=== PATIENT | male | born 1940 | race Caucasian/White ===

== ENCOUNTER 2018-10-10 09:43 | Emergency (ER) | payer MEDICARE, MEDICAID, SELFPAY ==
[2018-10-10 09:44] VITALS: BP 172/81; PULSE 60; RESP 19; TEMP 36.6; O2SAT 99; BMI 29.5
--- NOTE | 2018-10-10 09:44 | NURSING ---
NO OLD EKGS
--- NOTE | 2018-10-10 09:46 | EKG12_ITS ---
Test Reason : CP Blood Pressure : / mmHG Vent. Rate : 060 BPM Atrial Rate : 150 BPM P-R Int : 000 ms QRS Dur : 078 ms QT Int : 414 ms P-R-T Axes : 000 -14 005 degrees QTc Int : 414 ms Normal sinus rhythm Abnormal ECG Confirmed by EVY MARTÍNEZ MD ([id number]), editor department CARLA RENDON ([id number] on 10/13/2018 3:25:52 PM Referred By: GARETH Confirmed By:EVY MARTÍNEZ MD
[2018-10-10 09:48] VITALS: PULSE 59
--- NOTE | 2018-10-10 09:57 | RAD_ITS ---
STUDY: X-RAY CHEST REASON FOR EXAM: Male, 78 years old. Left lateral rib cage pain, no trauma. TECHNIQUE: PA and lateral views of the chest. COMPARISON: None. FINDINGS: There is hyperinflation of the lungs consistent with chronic obstructive lung disease (COPD). There is no demonstrated pleural abnormality. Normal size heart. Normal mediastinum and jhon. Normal visualized pulmonary arteries. There is atherosclerotic calcification of the aortic arch with tortuosity. There are diffuse degenerative changes of the visualized thoracic spine. Normal visualized ribs, clavicles, and shoulders. There is no demonstrated abnormality of the visualized soft tissue structures of the upper abdomen. RAD/Chest PA and Lateral IMPRESSION: COPD related changes with no evidence of distinct focal airspace disease or acute process. Electronically Signed: Loki Richard DO at 10:51 EST , Service support ,
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
[2018-10-10 10:42] VITALS: BP 143/73; PULSE 59; RESP 13; O2SAT 98
--- NOTE | 2018-10-10 10:43 | ED.DEP ---
ED Disposition - Plan for ED Patient: Disposition: Home or Assisted Living Chief Complaint: Chest Pain Instructions: ED Contusion Vs Minor Fx Rib Referrals: Care Physician,No Primary [Primary Care Provider] - As Needed Additional Instructions: Ice to the area. Use a pillow to support the left lateral rib cage. Tylenol and/or Motrin for pain.
--- OUTSIDE RECORDS SUMMARY | 2019-01-12 13:06 | XMS RPT_ITS ---
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 [place] [address]Kdb: Date: 06338Yfd: [phone] (HP) (HP) 10/21/2018 ROXIE CORONADOB: Primary ROXIE CORONADOB: [facility] [id number] Insurance:MEDICAREPoli [id number] [facility] cy Number: [address] [facility] System [place], [id number] [place], [place] Repository [place] [address]Zly: Date: 27976Bur: [phone] (HP) (HP) 10/10/2018 ROXIE Young Primary ROXIE Gottlieb [id number] Insurance:MEDICARE LOGANDOB: [address], PART A BPolicy Number: [id number] [address]Jfo: [id number] Repository Date:2018-10-10 (HP) 10/10/2018 Secondary ROXIE L Chery Insurance:MEDICAIDPol LOGANDOB: Community cy Number: [id number] Hospital [id number] Repository Date:2018-10-10 10/10/2018 Tertiary NOT GIVENUNK Sterling Insurance:SELF PAY [facility] Number: Effective Repository Date:2018-10-10 10/06/2018 ROXIE CORONADOB: Primary ROXIE Young Robb Mcguire [id number] Insurance:MEDICARE LOGANDOB: [facility] [id number] [facility] [place], Number: 67 Health system [address]Fjx: [id number] [facility] Date:Plan Name:[facility] [id number] (HP) 10/05/2018 ROXIE COORNADOB: Primary ROXIE Mcguire Insurance:MEDICAREPoli LOGANDOB: [facility] cy Number: [id number] Hospital [place], [id number] [address] [facility] [place] [address]Sgi: Date:[place] [id number] (HP) 10/05/2018 Secondary ROXIE Mcguire Insurance:MEDICARE LOGANDOB: [facility] [id number] Hospital Number: [address] [facility] Repository [id number] [place], Date:Plan Name:[facility] [id number] 10/04/2018 ROXIE CORONADOB: Primary ROXIE CORONADOB: Le[place] Insurance:MEDICAREPoli [id number] Number: [address] [facility] [address] [address] System [place], [id number] [address], [place] Repository [place] [address]Lzf: Date: [address]13[address]Sxg: [phone] (HP) (HP) 08/04/2018 ROXIE CORONADOB: Primary ROXIE CORONADOB: [place] Insurance:MEDICAREPoli [id number] [address] cy Number: [address] System [place], [id number] [address], [place] Repository [place] [address]Oku: Date: 616[address]Ttn: [phone] (HP) (HP) 07/06/2018 ROXIE CORONADOB: Primary ROXIE CORONADOB: [place] Insurance:MEDICAREPoli [id number] [address] cy Number: [address] [facility] [facility] [facility] [address] System [place], [id number] [address], [place] [address]Tnb: Date: 67906Gfr: [phone] (HP) (HP) 05/04/2018 ROXIE LOGANDOB: Primary ROXIE LOGANDOB: [place] Insurance:MEDICAREPoli [id number] [facility] cy Number: 67 [facility] System [place], [id number] [address], [place] Repository [place] [address]Jsd: Date: 49478Qdo: [phone]) [phone] (HP) (HP) 05/01/2018 ROXIE LOGANDOB: Primary Insurance:500 ROXIE Mcguire MEDICARE LOGANDOB: [facility] [id number] [facility] [address], Number: [address] [place] [address]Rso: [id number] [place] Date:Plan Name: [id number] (HP) 05/01/2018 Secondary ROXIE Mcguire Insurance:100 MEDICAID LOGANDOB: [facility] [id number] Hospital Number: [address] Repository [id number] [place] Date:Plan Name: [id number] 01/27/2018 ROXIE CORONADOB: Primary ROXIE CORONADOB: [place] Insurance:MEDICAREPoli [id number] [facility] cy Number: 67 [facility] [place], [id number] [address], [place] Repository [place] [address]Kyd: Date: 44373Bmg: [phone] (HP) (HP) 01/11/2018 ROXIE Primary ROXIE LOGANDOB: [facility]32467 Insurance:MEDICAREPoli [id number] [facility] cy Number: 67 [facility] [place], [id number] [place], [place] Rep[place] [address]Gsa: Date:9420-54-15[address] [address]Als: [phone], [place] [phone] (HP) (HP) [phone]: 01/11/2018 Secondary ROXIE LOGANDOB: [facility] Insurance:MEDICAIDPoli [id number] [facility] cy Number: 67 [facility] [id number] [place], [place] Repository Date:5872-18-79QY [address] [address]Sfa: [phone], [place] [phone] (HP) [address]WC: 12/10/2017 ROXIE Primary ROXIE LOGANDOB: [facility]67 Insurance:MEDICAREPoli [id number] [facility] cy Number: 67 [facility] [place], [id number] [address], [place] [address]Gpk: Date:4071-72-57[address] [address]Taa: [phone], [place] [phone] (HP) (BV) [address]NY: 12/10/2017 Secondary ROXIE LOGANDOB: [facility] Insurance:MEDICAIDPoli [id number] [facility] cy Number: 67 [facility] [id number] [place], [place] Repository Date:5192-59-55[address] [address]Dmi: [phone], [place] [phone] () [address]NF: 11/25/2017 ROXIE LOGANDOB: Primary ROXIE LOGANDOB: Leona [id number] Insurance:MEDICAREPoli [id number] [facility] cy Number: 67 [facility] [place], [id number] [place], [place] Repository [place] [address]Nwj: Date: [address]Ooy: [phone] (HP) (HP) 11/25/2017 Secondary ROXIE CORONADOB: Le[place] Insurance:MEDICAIDPoli [id number] [facility] cy Number: 67 [facility] [id number] [address], [place] Repository Date: [address]Vlo: ()
== END 2018-10-10 10:49 | disposition home or self-care (01) ==
PROVIDERS: Emergency Provider Emergency Medicine
DX: R07.89 Other chest pain (principal); T20.29XA Burn of second degree of multiple sites of head, face, and neck, initial encounter; W40.1XXA Explosion of explosive gases, initial encounter; Y93.9 Activity, unspecified; M19.90 Unspecified osteoarthritis, unspecified site; E11.9 Type 2 diabetes mellitus without complications; Z79.84 Long term (current) use of oral hypoglycemic drugs; Z79.82 Long term (current) use of aspirin
CPT/HCPCS: 71046; 93005; 99282

== ENCOUNTER → 2019-03-28 | Outpatient (CLI) | payer MEDICARE, MEDICAID, SELFPAY ==
[2019-03-09 12:58] VITALS: BMI 26.9
--- NOTE | 2019-03-28 13:07 | ECHOD_ITS ---
Reason For Study: Palpitations Procedure This was a 2D Doppler, Color Flow transthoracic echocardiogram. Exam performed in department. Left Ventricle Normal size and thickness. Left ventricular systolic function is normal. The estimated ejection fraction is 60 %. No evidence for diastolic dysfunction. No regional wall motion abnormalities noted. Right Ventricle Normal RV size. Normal systolic function. Atria Normal left atrium. Normal right atrium. No doppler evidence for ASD. Mitral Valve There is no mitral valve stenosis. No mitral valve insufficiency. Tricuspid Valve There is no tricuspid stenosis. Trivial tricuspid valve insufficiency. Unable to estimate RV systolic pressure due to insufficient tricuspid regurgitant envelope. Aortic Valve Trisinus/trileaflet aortic valve. There is no aortic stenosis. No aortic valve insufficiency. Pulmonic Valve There is no pulmonic valvular stenosis. No pulmonic valve insufficiency. Great Vessels Normal aortic root. Pericardium/Pleural No pericardial effusion. MMode/2D Measurements & Calculations LVIDd: 4.3 cm IVSd: 1.1 cm Ao root diam: 3.7 cm LVIDs: 2.7 cm LVPWd: 1.1 cm RVDd: 4.4 cm FS: 38.7 % LAV(MOD-bp): 48.5 ml LVAd ap4: 29.4 cm2 SV(MOD-sp4): 52.7 ml LAV(MOD-bp) Indexed: 23.6 ml/m2 EDV(MOD-sp4): 82.2 ml LAV(MOD-sp2): 55.3 ml EDV(sp4-el): 85.2 ml LAV(MOD-sp4): 39.1 ml LVAs ap4: 16.0 cm2 ESV(MOD-sp4): 29.5 ml ESV(sp4-el): 29.6 ml EF(MOD-sp4): 64.1 % EF(sp4-el): 65.2 % SV(sp4-el): 55.6 ml LA A4 area: 16.8 cm2 LA dimension(2D): 3.6 cm RA A4 area: 13.2 cm2 Doppler Measurements & Calculations MV E max sharan: 76.6 cm/sec Lat Peak E' Sharan: 8.8 cm/sec Med Peak E' Sharan: 7.4 cm/sec MV A max sharan: 69.5 cm/sec E/E' lat: 8.7 E/E' med: 10.3 MV E/A: 1.1 Ao V2 max: 141.1 cm/sec LV V1 max: 95.5 cm/sec PA V2 max: 98.9 cm/sec Ao max P.0 mmHg LV V1 max P.6 mmHg Ao V2 mean: 100.0 cm/sec Ao mean P.4 mmHg Ao V2 VTI: 36.1 cm TR max sharan: 243.7 cm/sec TR max P.8 mmHg Interpretation Summary Left ventricular systolic function is normal. The estimated ejection fraction is 60 %. No evidence for diastolic dysfunction. Ordering Physician: Nereida Gaona Referring Physician: Rhonda Calero Performed By: Consuelo Brown, DANILO, RVT
== END | disposition home or self-care (01) ==
LOC: CVS 13:06
PROVIDERS: Family Provider Physician Assistant Medical; PCP Physician Assistant Medical; Referring Provider Specialist; Visit Provider Specialist
DX: R00.2 Palpitations (principal)
CPT/HCPCS: 93306

== ENCOUNTER 2019-06-27 10:15 | Emergency (ER) | payer MEDICARE, MEDICAID, SELFPAY ==
[2019-04-05 13:09] VITALS: BMI 27.1
[2019-06-27 10:16] VITALS: BP 164/82; PULSE 66; RESP 16; TEMP 36.7; O2SAT 98; BMI 25.7
--- NOTE | 2019-06-27 11:13 | US_ITS ---
STUDY: ABDOMINAL ULTRASOUND - RIGHT UPPER QUADRANT REASON FOR VISIT: Male, 79 years old. Right upper quadrant pain TECHNIQUE: Ultrasound evaluation of the right upper quadrant was performed with real-time and static geronimo-scale imaging. TECHNICAL QUALITY: Adequate. COMPARISON: None. FINDINGS: Liver: The liver measures 16 cm. There is increased echogenicity consistent with fatty infiltration. The bile ducts are within normal limits. There is no demonstrated mass lesion. Gallbladder: Normal distended gallbladder. The gallbladder wall measures 2.8 mm. There is a negative sonographic Ramírez's sign. There is no pericholecystic fluid. Gallbladder sludge may be present. No shadowing gallstones are seen. Common Bile Duct (C.B.D.): The common bile duct measures 4.2 mm. Pancreas: Normal size of the head, body and tail of the pancreas. There is normal echogenicity of the pancreas. There is no demonstrated pancreatic mass or cyst. Right Kidney: Normal size of the right kidney. The right kidney measures 8.9 x 5.3 x 5.0 cm. Normal renal cortex. The right cortex measures 1.9 cm. There is no demonstrated renal mass or cyst. There is no right hydronephrosis. US/Gallbladder IMPRESSION: Gallbladder sludge may be present. No shadowing gallstones are seen. Normal common bile duct. Fatty liver. Electronically Signed: Jose Antonio Arrington MD at 13:41 EDT Tel , Service support ,
--- NOTE | 2019-06-27 11:14 | ED.DCSUM_ITS ---
History of Present Illness Chief Complaint: Abd Pain Informant: Patient - Abdominal Pain/Flank Pain Onset: Weeks - 1 Context: Gradual Onset Timing: Waxes and wanes Quality: Aching Location: - - R abd Current Severity: Moderate Maximum Severity: Severe Worsened by: Food - about 20 min after meals Relieved by: Nothing - Nausea/Vomiting/Emesis GI Symptom: Negative for: Nausea, Vomiting - Diarrhea/Melena/Hematochezia GI Symptom: Diarrhea - once, several days ago. Negative for: Melena, Hematochezia Associated Symptoms: Negative for: Dysuria, Frequency, Hematuria, Urgency Narrative: Patient presenting with abdominal pain that is been waxing and waning for about a week, no radiation to his shoulder blade but he feels it a little in his low back when it is hurting bad. He had diverticulitis in the past, and EGD/colonoscopy that were reportedly unremarkable. He states he was admitted overnight to [facility] in [place] for this problem, discharged today and he presents here for a second opinion; no new symptoms. No history of any abdominal surgeries. He was placed on Flagyl and diagnosed with enteritis. Has an appointment with his PCP at the end of this coming week. - Past Medical History (1) Diabetes mellitus Status: Chronic (2) Essential (primary) hypertension Status: Chronic Past Medical History - Allergies and Home Meds Allergies/Adverse Reactions: Allergies blue dye Allergy (Verified 06/27/19 10:16) Unknown metronidazole [From Flagyl] Adverse Reaction (Verified 06/27/19 10:16) Nausea Penicillins [PCN] Adverse Reaction (Verified 06/27/19 10:16) Nausea/Vom/Diarrhea Primary Care Physician: Rhonda Calero PA [Primary Care Provider] - Lives: Spouse/ Significant Other Smoking Status: Former smoker Drugs: None Review of Systems General: Denies: Chills, Fever, Malaise, Sweats Eyes: Denies: Visual changes - bilaterally, Diplopia ENT: Denies: Rhinorrhea, Sore throat Cardiovascular: Denies: Chest pain, Palpitations Respiratory: Denies: Dyspnea, Cough, Dyspnea on exertion Gastrointestinal: Reports: Abdominal pain. Denies: Nausea, Vomiting, Diarrhea - once sev days ago, not now, Melena, Hematochezia Genitourinary: Denies: Dysuria, Hematuria, Frequency Musculoskeletal: Reports: Back pain - right low. Denies: Swelling, Extremity Pain Skin: Denies: Rash, Wounds Neurological: Denies: Headache, Weakness, Numbness Physical Exam Vital Signs/Narrative: Vital Signs Temp Pulse Resp BP Pulse Ox 06/27/19 10:16 98.0 F 66 16 164/82 H 98 Inital Vital Signs reviewed: Yes General: Well nourished, Well developed, No Acute Distress - well-appearing, conversive Head: Normocephalic, Atraumatic Eyes: Perrl, EOMI ENT: Moist mucous membranes, No rhinorrhea Neck: Supple, Nontender Cardiovascular: Regular rate, Regular rhythm, No murmurs Respiratory: No distress, CTA bilaterally, Chest nontender Abdomen: Soft, Nondistended, Normal bowel sounds, Tender - RUQ, R mid abd, periumbilical; most tender R. no RLQ., Ramírez's sign. Negative for: Rebound tenderness Back: Nontender, Normal Inspection. Negative for: CVA tenderness Extremities: Nontender, No edema Skin: Normal color, No rash, No Trauma Neurological: Alert, Oriented x3, Cranial nerves II-XII grossly intact, Normal Strength, Normal Sensation, Normal Gait Psychological: Normal affect, Normal Mood Diagnostic/Tx/Re-eval Impressions Gallbladder Ultrasound 06/27/19 11:13 IMPRESSION: Gallbladder sludge may be present. No shadowing gallstones are seen. Normal common bile duct. Fatty liver. Electronically Signed: Jose Antonio Arrington MD at 13:41 EDT Tel , Service support , 06/27/19 11:13 Gallbladder [US] Stat Laboratory Results 06/27/19 06/27/19 06/27/19 11:35 11:35 13:25 WBC 4.3 L RBC 4.50 L Hgb 14.1 Hct 42.8 MCV 95.1 H MCH 31.3 MCHC 32.9 RDW Std Deviation 44.1 H RDW Coeff of [place] 12.7 Plt Count 119 L MPV 9.6 Immature Gran % (Auto) 0.200 Neut % (Auto) 62.5 Lymph % (Auto) 23.3 [place] % (Auto) 11.1 H Eos % (Auto) 2.4 Baso % (Auto) 0.5 Absolute Neuts (auto) 2.7 Absolute Lymphs (auto) 0.99 Nucleated RBC % 0 Sodium 139 Potassium 4.2 Chloride 108 H Carbon Dioxide 28.0 Anion Gap 3 L BUN 18 Creatinine 1.43 H Estim Creat Clear Calc 44.61 Est GFR (MDRD) Af Amer 61 Est GFR (MDRD) Non-Af 51 L BUN/Creatinine Ratio 12.6 Glucose 126 H Calcium 8.6 Total Bilirubin 0.80 AST 37 ALT 31 Alkaline Phosphatase 153 H Total Protein 6.7 Albumin 3.2 Globulin 3.5 Albumin/Globulin Ratio 0.9 Lipase 91 Urine Color Yellow Urine Clarity Clear Urine pH 7.0 Ur Specific [place] 1.010 Urine Protein Negative Urine Glucose (UA) 1000 H Urine Ketones Negative Urine Occult Blood Negative Urine Nitrite Negative Urine Bilirubin Negative Urine Urobilinogen Normal Ur Leukocyte Esterase 25 H Urine RBC 0 SEEN Urine WBC 0-5 SEEN Ur Squamous Epith Cells 0-5 SEEN Urine Bacteria RARE Urine Mucus 0 SEEN - Medical Decision Making I obtained blood work, urinalysis, and a right upper quadrant ultrasound, given his tenderness in that area in addition to his age, and increased likelihood of having gallbladder disease. It shows nothing acute there that would be explaining his pain. He has no leukocytosis. He has a slight elevation of alkaline phosphatase but the rest of his liver enzymes are normal. Eventually, we were able to obtain records from the outside hospital about the patient's recent stay. He had white blood counts that were slightly higher than they are now, and a CT scan that showed severe thickening of small bowel mucosa similar to prior exam, small amount of free fluid present in the abdomen and pelvis, probable cirrhotic changes of liver, perihepatic fluid present and increased since previous exam. I have the ED record, but I was not able to obtain records of what was done in the hospital, although it sounds like he was just observed overnight and treated symptomatically according to the patient. They did an ultrasound as well, which is unremarkable, I was unaware that they performed an ultrasound prior to getting one here as the patient could not tell me what tests he had. I gave him a dose of morphine 2 mg he feels much better for the rest of his observation in the emergency department. Mesenteric adenitis was also noted on the CT. This is nonspecific. He just had this CT performed, and I do not think it needs to be repeated at this time, now that I have seen his OSH records. He is not, nor ever was, and alcoholic. His bilirubin is not elevated at this time, so he does not appear to be in any degree of cholestasis which would be eventually present with cirrhosis from any cause. He will need further outpatient work-up for this. I do not think he needs to be admitted at this time since he is very well essentially asymptomatic after morphine 2 mg. We do not have gastroenterology available at this hospital. I do not think admitting him will necessarily be fruitful. At this facility, interventional radiology does liver biopsies. They are not available today since it is a holiday, to discuss with. He will need to follow-up with his primary care doctor to arrange follow-up testing and referrals. I will prescribe him some pain medication to use as needed, I have explained all this to him. He is agreeable. ED Disposition - Plan for ED Patient: Disposition: Home or Assisted Living Diagnosis: Right sided abdominal pain Instructions: ABDOMINAL PAIN, Unkown Cause, (Male) Prescriptions: Oxycodone [Oxyir] 5 mg PO Q6H PRN PRN 3 Days #12 tab PRN Reason: Pain Prescription Printed Referrals: Rhonda Calero PA [Primary Care Provider] - Keep [place] appointment (or sooner, if able)
[2019-06-27] MEDS: Morphine 2 MG/ML Syringe IV (11:38)
[2019-06-27 11:41] LABS: Absolute Lymphocyte Count 0.99 X10^3/uL (0.83-4.51); Absolute Neutrophil Count 2.7 X10^3/uL (2.0-7.7); Basophil# 0.02 X10^3/uL; Basophil% 0.5 % (0-1); Eosinophils% 2.4 % (0-5); Hematocrit 42.8 % (40-54); Hemoglobin 14.1 g/dL (13.0-16.5); Lymphocyte # 0.99 X10^3/ul (4.0); Lymphocyte % 23.3 % (19-41); Mean Corp Hgb Conc 32.9 g/dL (32-36); Mean Corpuscular Hgb 31.3 pg (27.0-32.0); Mean Corpuscular Volume 95.1 fL (80-94); Mean Platelet Vol. 9.6 fl (6.2-12.0); Monocyte# 0.47 X10^3/uL; Monocyte% 11.1 % (0-10); NRBC Flagged by Analyzer 0 % (0-5); Neutrophil # 2.66 X10^3/uL (2.7-7.7); Neutrophil % 62.5 % (47-70); Platelet Count 119 K/mm3 (150-450); RBC Distribution Width CV 12.7 % (11.6-14.6); RBC Distribution Width SD 44.1 fl (35.1-43.9); White Blood Count 4.3 K/mm3 (4.4-11.0)
[2019-06-27] MEDS: 0.9% Normal Saline 1,000 ML 125 ML IV (11:47)
[2019-06-27 12:06] LABS: ALB/GLOB Ratio 0.9 RATIO (0.9-2.4); AST(SGOT) 37 U/L (15-37); Alanine Aminotransfer ALT/SGPT 31 U/L (16-61); Albumin, Serum 3.2 g/dL (3.2-5.0); Alkaline Phosphatase 153 U/L (45-117); Anion Gap 3 (5-15); BUN 18 mg/dL (7-18); BUN/Creat Ratio 12.6 RATIO (10-20); Calcium,Total 8.6 mg/dL (8.5-10.1); Chloride 108 mmol/L (98-107); Creatinine, Serum 1.43 mg/dL (0.70-1.30); EST Glomerular Filtration Rate 51 mL/min (>60); Est Glom Filt Rate - Afr Amer 61 mL/min (>60); Estimated Creatinine Clearance 44.61 ml/min; Globulin 3.5 g/dL (2.2-4.2); Glucose 126 mg/dL (74-106); Lipase 91 U/L (73-393); Potassium 4.2 mmol/L (3.5-5.1); Protein, Total 6.7 g/dL (6.4-8.2); Sodium Level 139 mmol/L (136-145)
[2019-06-27 13:05] VITALS: BP 140/77; PULSE 61; RESP 16; O2SAT 99
[2019-06-27 13:30] LABS: Color, Urine Yellow (Yellow); Glucose, Dipstick 1000 mg/dl (Normal); Ketone-Dipstick Negative (Negative); Leukocyte Esterase-Dipstick 25 /ul (Negative); Mucous, Urine 0 SEEN /hpf (<or=2+); Nitrite-Dipstick Negative (Negative); Occult Blood-Urine Negative /ul (Negative); Protein-Dipstick Negative (Negative); Red Blood Cells-Urine 0 SEEN /hpf (0-5); Urine Bilirubin Dipstick Negative (Negative); Urine Clarity Clear (Clear); Urine Urobilinogen Normal (Normal)
[2019-06-27 13:36] LABS: Bacteria RARE /hpf (None Seen); Squamous Epithelial Cells - UA 0-5 SEEN /hpf (0-5); White Blood Cells 0-5 SEEN /hpf (0-5)
[2019-06-27 15:00] VITALS: RESP 16
[2019-06-27 16:45] VITALS: BP 151/77; PULSE 63; RESP 12; O2SAT 97
== END 2019-06-27 16:46 | disposition home or self-care (01) ==
PROVIDERS: Emergency Provider Emergency Medicine; Family Provider Physician Assistant Medical; PCP Physician Assistant Medical
DX: R10.9 Unspecified abdominal pain (principal); E11.9 Type 2 diabetes mellitus without complications; I10 Essential (primary) hypertension; Z87.891 Personal history of nicotine dependence; R74.8 Abnormal levels of other serum enzymes; I88.0 Nonspecific mesenteric lymphadenitis; Z79.899 Other long term (current) drug therapy; Z79.82 Long term (current) use of aspirin; Z79.84 Long term (current) use of oral hypoglycemic drugs
CPT/HCPCS: 76705; 80053; 81001; 83690; 85025; 96361; 96374; 99283; J7030; A4216